=== PATIENT | male | born 1980 | race Caucasian/White ===

== ENCOUNTER 2017-01-29 04:07 | Emergency (ER) | payer MEDICARE | END 2017-01-29 05:50 | disposition home or self-care (01) | LOC: ER 04:07 | DX: S01.01XA Laceration without foreign body of scalp, initial encounter (principal); S80.01XA Contusion of right knee, initial encounter; S90.02XA Contusion of left ankle, initial encounter; S20.211A Contusion of right front wall of thorax, initial encounter; F17.200 Nicotine dependence, unspecified, uncomplicated; W10.9XXA Fall (on) (from) unspecified stairs and steps, initial encounter ==